=== PATIENT | female | born 1930 | race Caucasian/White ===

== ENCOUNTER → 2017-01-10 | Outpatient (CLI) | payer BC, OTHER ==
[~2017-01-10] MED LIST: ASPI81TA28 PO; CHOL1000 PO; CLON0.1T12 PO; CYAN100020 PO; DLC5 PO; DLCS PR; EXL15 PO; LEVO50TA6 PO; LISI-461 PO; LSN5 PO; MECL1TAB40 PO; MELO7.5T5 PO; METF500T5 PO; MRLP17 PO; MULT-506 PO; MULT-589 PO; NAPR1TAB9 PO; NMN10 PO; NUTR-7 PO; PRAV10TA39 PO; PRLSR20 PO; XNX25 PO
[2017-01-10 17:00] LABS: MANUAL MICROSCOPIC REQUIRED? NO; REVIEW REQ? NO; URINE APPEARANCE CLEAR (CLEAR); URINE BILIRUBIN NEG (NEG); URINE COLOR YELLOW; URINE EPITHELIAL CELL AUTO >30 /lpf (0-5); URINE NITRITE NEG (NEG); URINE PH 5.5 (4.5-7.5); URINE SPECIFIC GRAVITY 1.012 (1.000-1.030); UROBILINOGEN NEG (NEG)
== END | disposition home or self-care (01) ==
LOC: EDBD → C.LABBC 16:26
PROVIDERS: ATTEND Internal Medicine
DX: R39.9 Unspecified symptoms and signs involving the genitourinary system (principal)

== ENCOUNTER → 2017-02-06 | Outpatient (CLI) | payer BC ==
--- NOTE | 2017-02-06 13:52 | DIAGNOSTIC IMAGING REPORT ---
CT SCAN OF THE BRAIN WITHOUT IV CONTRAST CLINICAL HISTORY: Right facial asymmetry. Difficult with walking and speech. COMPARISON STUDY: CT of the brain dated 05/18/2013. TECHNIQUE: Unenhanced axial CT scan of the brain is performed from the vertex to the skull base. CT DOSE: 537.48 mGy.cm FINDINGS: Brain parenchyma: There are age-related involutional changes noting advanced confluent subcortical and periventricular microangiopathic change. There is no hemorrhage, mass effect, or evidence of acute territorial ischemia by CT criteria. A small chronic lacunar infarct is identified in the anterior limb of the right internal capsule. Cooper-white matter is preserved. No extra-axial fluid collection is seen. Ventricles, sulci, cisterns: Prominent secondary to involutional change. Intracranial vasculature: There is atherosclerotic calcification of the cavernous carotid and vertebral arteries. Calvarium: Unremarkable. Sinuses and mastoids: The visualized paranasal sinuses are clear. The mastoid air cells are well pneumatized. Orbits: The bony orbits are grossly intact. IMPRESSION: Senescent changes as above with no hemorrhage, mass effect, or evidence of acute territorial ischemia by CT criteria. Electronically signed by: Daniel Sandoval M.D. 02/06/2017 1:50 PM Dictated Date/Time: 02/06/2017 1:47 PM
--- NOTE | 2017-02-06 14:33 | DIAGNOSTIC IMAGING REPORT ---
ULTRASOUND OF THE CAROTID ARTERIES CLINICAL HISTORY: Aphasia. COMPARISON STUDY: No priors. TECHNIQUE: Real-time, grayscale, and color Doppler sonography of the carotid arteries is performed. Images are reviewed in the transverse and longitudinal planes. FINDINGS: Blood pressures could not be obtained due to patient condition. The carotid arteries are patent bilaterally and demonstrate antegrade flow. There is mild to moderate echogenic shadowing atherosclerotic plaque seen bilaterally. Normal doppler arterial waveforms are seen throughout. Velocity measurements are listed below. Common carotid peak systolic velocity (cm/sec): RIGHT: 44 LEFT: 50 ICA proximal peak systolic velocity (cm/sec): RIGHT: 48 LEFT: 56 ICA mid peak systolic velocity (cm/sec): RIGHT: 58 LEFT: 77 ICA distal peak systolic velocity (cm/sec): RIGHT: 58 LEFT: 78 ICA/CC peak systolic ratio: RIGHT: 1.3 LEFT: 1.6 Antegrade flow was shown in the vertebral arteries. The external carotid arteries are patent. Elevated velocities within the right external carotid artery suggests some degree of stenosis. IMPRESSION: 1. Atherosclerotic plaque with no sonographic evidence of hemodynamically significant stenosis in the right or left carotid arterial system. 2. Antegrade flow is shown in the vertebral arteries. Electronically signed by: Daniel Sandoval M.D. 02/06/2017 2:31 PM Dictated Date/Time: 02/06/2017 2:29 PM
== END | disposition home or self-care (01) ==
LOC: EDBD → C.CTS 13:29 → EEVIPCON 13:29
PROVIDERS: ATTEND Psychiatry & Neurology Neurology
DX: R47.01 Aphasia (principal)

== ENCOUNTER → 2017-06-12 | Outpatient (CLI) | payer BC ==
[2017-06-12 18:12] LABS: URINE APPEARANCE CLOUDY (CLEAR); URINE BILIRUBIN NEG (NEG); URINE COLOR DK YELLOW; URINE EPITHELIAL CELL AUTO >30 /lpf (0-5); URINE NITRITE NEG (NEG); URINE PH 5.5 (4.5-7.5); URINE SPECIFIC GRAVITY 1.023 (1.000-1.030); UROBILINOGEN NEG (NEG)
[2017-06-12 18:13] LABS: MANUAL MICROSCOPIC REQUIRED? NO; REVIEW REQ? YES
[2017-06-12 18:35] LABS: ALT/SGPT 18 U/L (12-78); BLOOD UREA NITROGEN 15 mg/dl (7-18); BUN/CREATININE RATIO 15.1 (10-20); CALCIUM 9.7 mg/dl (8.5-10.1); CARBON DIOXIDE 30 mmol/L (21-32); CHLORIDE 96 mmol/L (98-107); GLUCOSE 141 mg/dl (70-99); POTASSIUM 3.4 mmol/L (3.5-5.1); SODIUM 134 mmol/L (136-145)
[2017-06-12 18:45] LABS: ALB/GLOB RATIO 0.9 (0.9-2); ALKALINE PHOSPHATASE 107 U/L (45-117); AST/SGOT 15 U/L (15-37)
[2017-06-13 07:06] LABS: ESTIMATED AVERAGE GLUCOSE 163 mg/dl; HA1C FLAG Normal (Normal)
--- NOTE | 2017-06-27 14:07 | CODING QUERY MEDICAL NECESSITY ---
SUPPORTING DIAGNOSIS NEEDED A supporting diagnosis is required for the test/procedure performed on this patient in order for us to be reimbursed by the patient's insurance. Please provide a supporting diagnosis for the following test/procedure listed below next to the test name along with your signature. *If there is no additional diagnosis for this patient that would support the following test/procedure please document that below next to the test/procedure. Test(s)/Procedure(s) that require a supporting diagnosis: * VITAMIN D, 25-HYDROXY DIAGNOSIS: Provider Signature: Date: Thank you Kori Sifuentes [employer] Information Management Once completed, please kindly fax back to [phone] For questions please call [phone]
== END | disposition home or self-care (01) ==
LOC: C.LAB 17:07
PROVIDERS: ATTEND Physician Assistant Medical
DX: E11.9 Type 2 diabetes mellitus without complications (principal); R42 Dizziness and giddiness; R39.9 Unspecified symptoms and signs involving the genitourinary system; R41.0 Disorientation, unspecified; R29.898 Other symptoms and signs involving the musculoskeletal system; E03.9 Hypothyroidism, unspecified

== ENCOUNTER 2017-07-27 08:17 | Inpatient (IN) | payer BC, OTHER ==
[~2017-07-27] VITALS: Ht 160 cm; Wt 90.3 kg
[~2017-07-27 08:17] MED LIST changes: -ASPI81TA28 PO; -CHOL1000 PO; -CLON0.1T12 PO; -CYAN100020 PO; -DLC5 PO; -DLCS PR; -EXL15 PO; -LEVO50TA6 PO; -LISI-461 PO; -LSN5 PO; -MECL1TAB40 PO; -METF500T5 PO; -MRLP17 PO; -MULT-589 PO; -NMN10 PO; -NUTR-7 PO; -PRLSR20 PO; -XNX25 PO
[2017-07-27] MEDS ORDERED: ONDANSETRON INJ 2 MG/ML 2 ML VIAL IV STA (08:22)
[2017-07-27] MEDS ORDERED: NiCARDipine IV 25 MG in SODIUM CHLORIDE 0.9% 250ML 240 ML IV STA (08:22)
[2017-07-27] MEDS ORDERED: LABETALOL HCL IV 5 MG/ML 20ML IV STA (08:22)
--- NOTE | 2017-07-27 08:35 | EMERGENCY ROOM VISIT NOTE ---
History Report prepared by Artemioibangela: Sole Calero Under the Supervision of: Dr. Emanuel Lerner M.D. First contact with patient: 08:20 Chief Complaint: FALL Stated Complaint: FALL History of Present Illness The patient is an 88 year old female who presents to the Emergency Room with complaints of a fall that occurred prior to arrival. She was brought to the ED via BLS from [facility] where she resides. EMS reports the patient experienced a mechanical fall this morning. She sustained a large hematoma with a laceration to the right side of her forehead. She also complains of back pain. Per EMS, she began vomiting immediately prior to arrival. She has experienced emesis x 1 here in the ED. Her daughter reports she lived with her and her up until approximately 2 months ago. She states she was told by Nursing staff that as the patient was getting dressed with assistance this morning, her theology professor turned around to get something, and the patient lost her balance and fell onto the floor. Source of History: family (daughter), EMS Onset: earlier this morning Position: other (global) Quality: other (fall) Timing: resolved Associated Symptoms: + nausea, + vomiting, + back pain Review of Systems See HPI for pertinent positives & negatives. A total of 10 systems reviewed and were otherwise negative. Past Medical & Surgical Medical Problems: (1) Carcinoma of colon (2) Partial colectomy Social History Alcohol Use: none Drug Use: none Marital Status: Housing Status: alf Occupation Status: retired Current/Historical Medications Scheduled Aspirin (Aspirin Ec), 81 MG PO DAILY Cholecalciferol (Vitamin D3), 1,000 INTER.UNIT PO DAILY Clonidine Hcl (Catapres), 0.1 MG PO BID Cyanocobalamin (Vitamin B12), 1,000 MCG PO DAILY Levothyroxine Sodium (Levothyroxine Sodium), 50 MCG PO DAILY Lisinopril (Lisinopril), 5 MG PO DAILY Memantine (Namenda), 10 MG PO BID Metformin Hcl Er (Glucophage Er), 500 MG PO DAILY Multivitamins (Daily Saroj), 1 TAB PO DAILY Pravastatin Sodium (Pravastatin Sodium), 10 MG PO DAILY Rivastigmine Tartrate (Rivastigmine Tartrate), 3 MG PO BID Scheduled PRN Alprazolam (Alprazolam), 0.125 MG PO BID PRN for Anxiety Meclizine HCl (Meclizine HCl), 25 MG PO TID PRN for Dizziness or Vertigo Omeprazole (Prilosec), 20 MG PO DAILY PRN for PRN Allergies Coded Allergies: Penicillins (Verified Allergy, Intermediate, RASH, 02/15/13) Donepezil (Unverified Allergy, Unknown, UNKNOWN, 07/27/17) Sulfa Antibiotics (Unverified Allergy, Unknown, UNKNOWN, 07/27/17) Physical Exam Vital Signs Date Time Temp Pulse Resp B/P (MAP) Pulse Ox O2 Delivery O2 Flow Rate FiO2 07/27/17 10:30 85 20 135/81 95 Room Air 07/27/17 10:20 83 18 157/76 95 Room Air 07/27/17 10:20 95 Room Air 07/27/17 10:10 82 20 159/78 94 Room Air 07/27/17 10:00 81 18 146/79 95 Room Air 07/27/17 09:50 84 18 151/75 95 Room Air 07/27/17 09:40 79 18 155/73 96 Room Air 07/27/17 09:30 80 18 176/91 96 Room Air 07/27/17 09:25 82 18 169/93 97 Room Air 07/27/17 09:17 75 20 192/92 95 Room Air 07/27/17 09:10 75 20 200/95 96 Room Air 07/27/17 09:00 195/128 07/27/17 08:50 202/101 07/27/17 08:45 74 18 202/92 94 Room Air 07/27/17 08:43 81 18 180/103 94 Room Air 07/27/17 08:35 95 Room Air 07/27/17 08:25 37.0 77 18 241/115 96 Room Air 07/27/17 08:25 76 Physical Exam GENERAL: Patient is a healthy-appearing well-nourished 88 year old female HEAD: Normocephalic, large hematoma to right side of head, laceration present EYES: Ocular movements intact pupils equal and react to light OROPHARYNX mucous membranes are moist no exudates present no erythema or edema present NECK: Supple no nuchal rigidity CHEST: Good equal expansion LUNGS: Clear and equal to auscultation CARDIAC: Normal S1 and S2 ABDOMEN: Soft nontender no guarding BACK: No CVA tenderness EXTREMITIES: No pain upon palpation normal muscle strength in all groups no clubbing cyanosis or edema NEURO: Patient is following commands is answering questions appropriately. Alert and oriented x3 Cranial Nerves 2-12 grossly intact Medical Decision & Procedures ER Provider Diagnostic Interpretation: Radiology results as stated below per my review and radiologist interpretation: CERVICAL SPINE W/O CLINICAL HISTORY: 88 years-old Female with Pt fall. Acute neck injury status post fall. COMPARISON: CT head of same day, CT cervical spine 05/17/2013. TECHNIQUE: Multiple axial CT images of the cervical spine were obtained without contrast. A dose lowering technique was utilized adhering to the principles of ALARA. FINDINGS: No acute cervical spine fracture or dislocation identified. There is unchanged 2 mm anterolisthesis of C4 on C5, likely secondary to severe facet arthropathy at this interspace. Multilevel facet arthropathy is noted which is moderate to severe throughout. Multilevel intervertebral disc space narrowing and endplate spurring is also noted. These changes result in moderate right-sided foraminal narrowing at C3-C4, moderate foraminal narrowing on the left at C4-C5 moderate left and severe right foraminal narrowing at C5-C6. Moderate bilateral C6-C7 foraminal stenosis. There is moderate intervertebral disc space narrowing at C3-C4 with mild/moderate intervertebral disc space narrowing seen at several levels. There is mild central canal narrowing at C5-C6. Lung apices are clear. There is atherosclerosis of the aorta and carotid bulbs. IMPRESSION: 1. No acute cervical spine fracture or subluxation. 2. Unchanged 2 mm anterolisthesis of C4 on C5, likely secondary to underlying severe facet arthropathy. 3. Multilevel advanced facet arthropathy and uncovertebral spurring is noted in addition to intervertebral disc space narrowing as above resulting in varying degrees of central canal and foraminal narrowing. No high-grade central canal stenosis identified. The above report was generated using voice recognition software. It may contain grammatical, syntax or spelling errors. Electronically signed by: Juan Crowder M.D. 07/27/2017 8:54 AM HEAD WITHOUT CONTRAST (CT) CLINICAL HISTORY: 88 years-old Female with Pt AMS. Acute altered mental status with fall. Right frontal scalp laceration and hematoma. TECHNIQUE: Multiple axial CT images of the head were obtained without contrast. A dose lowering technique was utilized adhering to the principles of ALARA. CT DOSE: 1093.00 mGy.cm COMPARISON: CT head 02/06/2017. FINDINGS: No acute intracranial hemorrhage, midline shift, mass, large territorial ischemia or abnormal extra-axial collection. There is moderate cerebral and cerebellar atrophy with ex vacuo ventriculomegaly. Advanced chronic microvascular ischemic changes are present. The calvarium is intact. The paranasal sinuses, mastoid air cells, and middle ear cavities are clear. There is a large right frontal scalp hematoma, 5.3 x 1.6 cm with adjacent skin irregularity suggesting laceration. No opaque foreign body. IMPRESSION: 1. Large right frontal scalp hematoma measuring up to 5.3 cm and laceration without acute intracranial abnormality or calvarial fracture. No intracranial hemorrhage. 2. Stable age-related changes as above. The above report was generated using voice recognition software. It may contain grammatical, syntax or spelling errors. Electronically signed by: Juan Crowder M.D. 07/27/2017 8:45 AM CHEST ONE VIEW PORTABLE HISTORY: 88 years-old Female Pt c/o AMS acute altered mental status with recent fall. COMPARISON: Chest radiograph 02/15/2013 TECHNIQUE: Portable upright AP view of the chest FINDINGS: Cardiac silhouette is again mildly enlarged. There is atherosclerosis and tortuosity of the aorta. There is no pneumothorax or large pleural effusion. Subsegmental linear left lung base opacity suggests atelectasis. There is sigmoidal scoliosis of the thoracolumbar spine. The bones appear grossly intact. IMPRESSION: Minimal left lung base subsegmental atelectasis/scarring without acute cardiopulmonary process. The above report was generated using voice recognition software. It may contain grammatical, syntax or spelling errors. Electronically signed by: Juan Crowder M.D. 07/27/2017 9:41 AM PELVIS 1 OR 2 VIEW ROUTINE HISTORY: 88 years-old Female Pt c/o AMS, fall acute altered mental status with recent fall. COMPARISON: Acute abdominal series radiographs 10/13/2012 TECHNIQUE: Single frontal view of the pelvis FINDINGS: Surgical coils from hernia repair project over the right lower quadrant. Vascular calcifications are noted. Moderate osteoarthritis of the bilateral hips. Advanced degenerative changes involve the lower lumbar spine, only partially imaged. There is no acute fracture or dislocation identified. IMPRESSION: 1. No acute fracture or dislocation. 2. Moderate osteoarthritis of the bilateral hips with partially imaged advanced degenerative changes of the lower lumbar spine. The above report was generated using voice recognition software. It may contain grammatical, syntax or spelling errors. Electronically signed by: Juan Crowder M.D. 07/27/2017 9:43 AM Laboratory Results 07/27/17 08:35 Red Blood Count 4.66, Mean Corpuscular Volume 90.3, Mean Corpuscular Hemoglobin 30.9, Mean Corpuscular Hemoglobin Concent 34.2, Mean Platelet Volume 10.8, Neutrophils (%) (Auto) 72.2, Lymphocytes (%) (Auto) 17.8, Monocytes (%) (Auto) 7.8, Eosinophils (%) (Auto) 1.6, Basophils (%) (Auto) 0.3, Neutrophils # (Auto) 8.15, Lymphocytes # (Auto) 2.01, Monocytes # (Auto) 0.88, Eosinophils # (Auto) 0.18, Basophils # (Auto) 0.03 07/27/17 08:35 Test 07/27/17 08:35 07/27/17 08:44 07/27/17 09:00 White Blood Count 11.28 K/uL (4.8-10.8) Red Blood Count 4.66 M/uL (4.2-5.4) Hemoglobin 14.4 g/dL (12.0-16.0) Hematocrit 42.1 % (37-47) Mean Corpuscular Volume 90.3 fL (80-100) Mean Corpuscular Hemoglobin 30.9 pg (25-34) Mean Corpuscular Hemoglobin Concent 34.2 g/dl (32-36) Platelet Count 285 K/uL (130-400) Mean Platelet Volume 10.8 fL (7.4-10.4) Neutrophils (%) (Auto) 72.2 % Lymphocytes (%) (Auto) 17.8 % Monocytes (%) (Auto) 7.8 % Eosinophils (%) (Auto) 1.6 % Basophils (%) (Auto) 0.3 % Neutrophils # (Auto) 8.15 K/uL (1.4-6.5) Lymphocytes # (Auto) 2.01 K/uL (1.2-3.4) Monocytes # (Auto) 0.88 K/uL (0.11-0.59) Eosinophils # (Auto) 0.18 K/uL (0-0.5) Basophils # (Auto) 0.03 K/uL (0-0.2) RDW Standard Deviation 42.5 fL (36.4-46.3) RDW Coefficient of Variation 13.0 % (11.5-14.5) Immature Granulocyte % (Auto) 0.3 % Immature Granulocyte # (Auto) 0.03 K/uL (0.00-0.02) Prothrombin Time 10.0 SECONDS (9.0-12.0) Prothromb Time International Ratio 0.9 (0.9-1.1) Activated Partial Thromboplast Time 24.3 SECONDS (21.0-31.0) Partial Thromboplastin Ratio 0.9 Anion Gap 9.0 mmol/L (3-11) Estimated GFR () 76.8 Estimated GFR (Non- 66.3 BUN/Creatinine Ratio 15.7 (10-20) Calcium Level 9.4 mg/dl (8.5-10.1) Total Creatine Kinase 79 U/L (26-192) Creatine Kinase MB 1.6 ng/ml (0.5-3.6) Creatine Kinase MB Ratio 2.0 (0-3.0) Troponin I < 0.015 ng/ml (0-0.045) Bedside Prothrombin Time INR 0.9 (0.9-1.1) Urine Color YELLOW Urine Appearance CLEAR (CLEAR) Urine pH 8.0 (4.5-7.5) Urine Specific [place] 1.015 (1.000-1.030) Urine Protein NEG (NEG) Urine Glucose (UA) NEG (NEG) Urine Ketones NEG (NEG) Urine Occult Blood NEG (NEG) Urine Nitrite NEG (NEG) Urine Bilirubin NEG (NEG) Urine Urobilinogen NEG (NEG) Urine Leukocyte Esterase NEG (NEG) Labs reviewed by ED physician. Medications Administered Medications (Trade) Dose Ordered Sig/Domenico Route Start Time Stop Time Status Last Admin Dose Admin Labetalol HCl (Normodyne IV) 10 mg NOW STAT IV 07/27/17 08:22 07/27/17 08:25 DC 07/27/17 08:42 10 MG Nicardipine HCl 25 mg/Sodium Chloride 250 ml @ 0 mls/hr Q0M STAT IV 07/27/17 08:22 07/27/17 08:25 DC 07/27/17 09:13 50 MLS/HR Ondansetron HCl (Zofran Inj) 4 mg NOW STAT IV 07/27/17 08:22 07/27/17 08:25 DC 07/27/17 08:40 4 MG Lisinopril (Zestril Tab) 5 mg NOW ONCE PO 07/27/17 10:30 07/27/17 10:31 DC 07/27/17 10:38 5 MG Procedure Location: Right Forehead Total length: 2.6 cm Complexity: Simple Verbal consent was obtained after the risks and benefits were explained, including but not limited to bleeding, scarring, infection, pain, and bone/joint /nerve damage. At this time, the risks of the procedure are less than the risks of NOT performing the procedure. A time out was taken and the correct patient and site identified. The skin was prepped with betadine. The target area was anesthetized with 4 ml of 1% lidocaine without epinephrine. Copious irrigation was performed using NSS. The skin was re-prepped with betadine and a sterile field set. The wound was explored for foreign bodies and none found. Examination revealed no injury to deep structures such as tendons, bone, or significant blood vessels. Debridement was not performed. The wound edges were approximated using 3, 5-0 simple interrupted nylon sutures. Hemostasis and excellent approximation was achieved. Antibacterial ointment and a sterile dressing applied. Detailed wound care instructions and signs and symptoms of infection reviewed with the patient. No complications and the patient tolerated the procedure well. ECG Indication: vomiting Rate (beats per minute): 76 Rhythm: normal sinus (normal sinus rhythm) Findings: no acute ischemic change, no ectopy, other (Prolonged QT) ED Course 0822: Zofran 4 mg IV, Nicardipine HCl 25 mg/NSS 250 ml @ 0 mls/hr IV, Labetalol HCl 10 mg IV. 0830: Past medical records reviewed. The patient was evaluated in room A2. A complete history and physical examination was performed. 0839: Lidocaine HCl 20 ml INFIL. 0939: I discussed the patients case with Dr. Cristina, [facility] Hospitalist. The patient will be further evaluated. 0945: I reevaluated the patient. She is resting comfortably. I discussed her results and my recommendation she remain in the hospital for further evaluation and management. Her family verbalized complete understanding and agreement. Medical Decision Prior records/ancillary studies reviewed. Triage Nursing notes reviewed. The patient's history was concerning for traumatic injury Differential diagnosis: Etiologies such as fracture, dislocation, intra-abdominal, pneumothorax, intrathoracic , intracranial, neurologic, as well as other traumatic pathologies were entertained. This is an 88-year-old female who presents emergency department after a fall at her alf. The patient has a large contusion with laceration and is actively vomiting. Her blood pressure is extremely high. Based on these findings the patient was sent immediately to CAT scan of the head. This does not show any acute intracranial process. The patient was then given Zofran as well as labetalol to bring her blood pressure down. She was placed on a nicardipine drip. The laceration was repaired as above. Repeat examination revealed much improvement the patient's symptoms. Based on the active vomiting as well as the patient's hypertension I did discuss the case with the hospitalist service who agreed to admit the patient. Patient family were in agreement with the treatment plan. Medication Reconcilliation Current Medication List: was personally reviewed by me Blood Pressure Screening Patient's blood pressure: Elevated blood pressure The patients elevated blood pressure will be further addressed by the hospital medicine team Consults Time Called: [phone] Consulting Physician: Dr. Cristina [facility] Hospitalist Returned Call: [phone] I discussed the patients case with Dr. Cristina [facility] Hospitalist. The patient will be further evaluated. Impression Primary Impression: Hypertensive urgency Additional Impressions: Fall Head injury Critical Care I have personally spent greater than 30 minutes of critical care time in the direct management of this patient. This includes bedside care, interpretation of diagnostic studies, and testing, discussion with consultants, patient, and family members, and other required patient management activities. This 30 minutes is in excess of all separately billable procedures. Scribe Attestation The scribe's documentation has been prepared under my direction and personally reviewed by me in its entirety. I confirm that the note above accurately reflects all work, treatment, procedures, and medical decision making performed by me. Departure Information Dispostion Being Evaluated By Hospitalist Referrals Dimitry Sandhu M.D. (PCP) Patient Instructions My [facility] Problem Qualifiers Additional Impressions: Fall Encounter type: initial encounter Qualified Codes: W19.XXXA - Unspecified fall, initial encounter Head injury Encounter type: initial encounter Qualified Codes: S09.90XA - Unspecified injury of head, initial encounter
[2017-07-27] MEDS ORDERED: XYLOCAINE 1%/SOD BICARB 20 ML VIAL INFIL STA (08:39)
--- NOTE | 2017-07-27 08:46 | DIAGNOSTIC IMAGING REPORT ---
HEAD WITHOUT CONTRAST (CT) CLINICAL HISTORY: 88 years-old Female with Pt AMS. Acute altered mental status with fall. Right frontal scalp laceration and hematoma. TECHNIQUE: Multiple axial CT images of the head were obtained without contrast. A dose lowering technique was utilized adhering to the principles of ALARA. CT DOSE: 1093.00 mGy.cm COMPARISON: CT head 02/06/2017. FINDINGS: No acute intracranial hemorrhage, midline shift, mass, large territorial ischemia or abnormal extra-axial collection. There is moderate cerebral and cerebellar atrophy with ex vacuo ventriculomegaly. Advanced chronic microvascular ischemic changes are present. The calvarium is intact. The paranasal sinuses, mastoid air cells, and middle ear cavities are clear. There is a large right frontal scalp hematoma, 5.3 x 1.6 cm with adjacent skin irregularity suggesting laceration. No opaque foreign body. IMPRESSION: 1. Large right frontal scalp hematoma measuring up to 5.3 cm and laceration without acute intracranial abnormality or calvarial fracture. No intracranial hemorrhage. 2. Stable age-related changes as above. The above report was generated using voice recognition software. It may contain grammatical, syntax or spelling errors. Electronically signed by: Juan Crowder M.D. 07/27/2017 8:45 AM Dictated Date/Time: 07/27/2017 8:41 AM
[2017-07-27] MEDS ORDERED: MULT-589 PO (08:51)
[2017-07-27] MEDS ORDERED: LEVO50TA6 PO (08:51)
[2017-07-27] MEDS ORDERED: CLON0.1T12 PO (08:51)
[2017-07-27] MEDS ORDERED: ASPI81TA28 PO (08:51)
[2017-07-27] MEDS ORDERED: XNX25 PO (08:52)
[2017-07-27] MEDS ORDERED: CHOL1000 PO (08:52)
[2017-07-27] MEDS ORDERED: NMN10 PO (08:52)
[2017-07-27] MEDS ORDERED: PRLSR20 PO (08:52)
[2017-07-27] MEDS ORDERED: CYAN100020 PO (08:52)
[2017-07-27] MEDS ORDERED: LSN5 PO (08:52)
[2017-07-27] MEDS ORDERED: MECL1TAB40 PO (08:52)
[2017-07-27] MEDS ORDERED: EXL15 PO (08:52)
[2017-07-27] MEDS ORDERED: METF500T5 PO (08:52)
--- NOTE | 2017-07-27 08:55 | DIAGNOSTIC IMAGING REPORT ---
CERVICAL SPINE W/O CLINICAL HISTORY: 88 years-old Female with Pt fall. Acute neck injury status post fall. COMPARISON: CT head of same day, CT cervical spine 05/17/2013. TECHNIQUE: Multiple axial CT images of the cervical spine were obtained without contrast. A dose lowering technique was utilized adhering to the principles of ALARA. FINDINGS: No acute cervical spine fracture or dislocation identified. There is unchanged 2 mm anterolisthesis of C4 on C5, likely secondary to severe facet arthropathy at this interspace. Multilevel facet arthropathy is noted which is moderate to severe throughout. Multilevel intervertebral disc space narrowing and endplate spurring is also noted. These changes result in moderate right-sided foraminal narrowing at C3-C4, moderate foraminal narrowing on the left at C4-C5 moderate left and severe right foraminal narrowing at C5-C6. Moderate bilateral C6-C7 foraminal stenosis. There is moderate intervertebral disc space narrowing at C3-C4 with mild/moderate intervertebral disc space narrowing seen at several levels. There is mild central canal narrowing at C5-C6. Lung apices are clear. There is atherosclerosis of the aorta and carotid bulbs. IMPRESSION: 1. No acute cervical spine fracture or subluxation. 2. Unchanged 2 mm anterolisthesis of C4 on C5, likely secondary to underlying severe facet arthropathy. 3. Multilevel advanced facet arthropathy and uncovertebral spurring is noted in addition to intervertebral disc space narrowing as above resulting in varying degrees of central canal and foraminal narrowing. No high-grade central canal stenosis identified. The above report was generated using voice recognition software. It may contain grammatical, syntax or spelling errors. Electronically signed by: Juan Crowder M.D. 07/27/2017 8:54 AM Dictated Date/Time: 07/27/2017 8:48 AM
[2017-07-27 09:06] LABS: BASO % 0.3 %; BASO ABS # 0.03 K/uL (0-0.2); COMPLETE YES; EOS % 1.6 %; HEMATOCRIT 42.1 % (37-47); IG% 0.3 %; LYMPH % 17.8 %; LYMPH ABS # 2.01 K/uL (1.2-3.4); MEAN CELL VOLUME 90.3 fL (80-100); MEAN CORPUSCULAR HEMOGLOBIN 30.9 pg (25-34); MEAN CORPUSCULAR HGB CONC 34.2 g/dl (32-36); MEAN PLATELET VOLUME 10.8 fL (7.4-10.4); MONO % 7.8 %; NEUT % 72.2 %; PLATELET COUNT 285 K/uL (130-400); RED BLOOD COUNT 4.66 M/uL (4.2-5.4); WHITE BLOOD COUNT 11.28 K/uL (4.8-10.8)
[2017-07-27 09:15] LABS: INR 0.9 (0.9-1.1); PARTIAL THROMBOPLASTIN RATIO 0.9
[2017-07-27 09:20] LABS: BLOOD UREA NITROGEN 13 mg/dl (7-18); BUN/CREATININE RATIO 15.7 (10-20); CALCIUM 9.4 mg/dl (8.5-10.1); CARBON DIOXIDE 27 mmol/L (21-32); CHLORIDE 104 mmol/L (98-107); GLUCOSE 168 mg/dl (70-99); POTASSIUM 4.1 mmol/L (3.5-5.1); SODIUM 140 mmol/L (136-145)
[2017-07-27 09:24] LABS: URINE APPEARANCE CLEAR (CLEAR); URINE BILIRUBIN NEG (NEG); URINE COLOR YELLOW; URINE NITRITE NEG (NEG); URINE SPECIFIC GRAVITY 1.015 (1.000-1.030); UROBILINOGEN NEG (NEG); ZZURINE CULT IF INDIC CATH NO
--- NOTE | 2017-07-27 09:42 | DIAGNOSTIC IMAGING REPORT ---
CHEST ONE VIEW PORTABLE HISTORY: 88 years-old Female Pt c/o AMS acute altered mental status with recent fall. COMPARISON: Chest radiograph 02/15/2013 TECHNIQUE: Portable upright AP view of the chest FINDINGS: Cardiac silhouette is again mildly enlarged. There is atherosclerosis and tortuosity of the aorta. There is no pneumothorax or large pleural effusion. Subsegmental linear left lung base opacity suggests atelectasis. There is sigmoidal scoliosis of the thoracolumbar spine. The bones appear grossly intact. IMPRESSION: Minimal left lung base subsegmental atelectasis/scarring without acute cardiopulmonary process. The above report was generated using voice recognition software. It may contain grammatical, syntax or spelling errors. Electronically signed by: Juan Crowder M.D. 07/27/2017 9:41 AM Dictated Date/Time: 07/27/2017 9:39 AM
--- NOTE | 2017-07-27 09:44 | DIAGNOSTIC IMAGING REPORT ---
PELVIS 1 OR 2 VIEW ROUTINE HISTORY: 88 years-old Female Pt c/o AMS, fall acute altered mental status with recent fall. COMPARISON: Acute abdominal series radiographs 10/13/2012 TECHNIQUE: Single frontal view of the pelvis FINDINGS: Surgical coils from hernia repair project over the right lower quadrant. Vascular calcifications are noted. Moderate osteoarthritis of the bilateral hips. Advanced degenerative changes involve the lower lumbar spine, only partially imaged. There is no acute fracture or dislocation identified. IMPRESSION: 1. No acute fracture or dislocation. 2. Moderate osteoarthritis of the bilateral hips with partially imaged advanced degenerative changes of the lower lumbar spine. The above report was generated using voice recognition software. It may contain grammatical, syntax or spelling errors. Electronically signed by: Juan Crowder M.D. 07/27/2017 9:43 AM Dictated Date/Time: 07/27/2017 9:41 AM
[2017-07-27 09:47] LABS: MANUAL MICROSCOPIC REQUIRED? NO; REVIEW REQ? NO
[2017-07-27 10:20] VITALS: O2SAT 95; Ht 160 cm; Wt 90.3 kg
[2017-07-27] MEDS ORDERED: LISINOPRIL 5 MG TAB PO ONE (10:30)
[2017-07-27] MEDS ORDERED: NiCARDipine IV 25 MG in SODIUM CHLORIDE 0.9% 250ML 240 ML IV PRN (10:38)
[2017-07-27] MEDS ORDERED: ACETAMINOPHEN 325 MG TAB PO PRN (10:45)
[2017-07-27] MEDS ORDERED: MAGNESIUM HYDROXIDE SUSP 30 ML UDC PO PRN (10:45)
[2017-07-27] MEDS ORDERED: ALPRAZOLAM 0.25 MG TAB PO PRN (10:45)
[2017-07-27] MEDS ORDERED: ONDANSETRON INJ 2 MG/ML 2 ML VIAL IV PRN (10:45)
[2017-07-27] MEDS ORDERED: ALUMINUM/MAGNESIUM/SIMETH (MAALOX MAX) 30 ML UDC PO PRN (10:45)
[2017-07-27] MEDS: INSULIN ASPART 100 UNITS/ML 3 ML PEN SC SCH ×3 (11:00→21:00)
[2017-07-27] MEDS ORDERED: DEXTROSE 50% 50 ML SYR IV PRN (11:00)
[2017-07-27] MEDS ORDERED: GLUCOSE 40% GEL 15 GM TUBE PO PRN (11:00)
[2017-07-27] MEDS ORDERED: GLUCOSE 10 TABS/TUBE PO PRN (11:00)
[2017-07-27] MEDS ORDERED: GLUCAGON FOR INJ 1 MG VIAL SQ PRN (11:00)
--- NOTE | 2017-07-27 11:04 | History and Physical ---
History & Physical Date & Time of Service: Jul 27, 2017 at 10:46 Chief Complaint: FALL Primary Care Physician: Dimitry Sandhu M.D. History of Present Illness 88yo female, resident of [facility], with h/o dementia, T2DM , and HTN - who presented after a fall this am about 0730. Was standing in her room at [facility] while staff were getting her ready for the day when she simply fell and hit her head. There was no loss of consciousness. She struck the front portion of her forehead. The patient denied any dizziness , chest pain, or dyspnea prior to the event. She had several falls a few months ago but none since. She does very little walking, if any, and is essentially wheelchair dependent. Prior to ER arrival she had emesis. Then had emesis again in the ER. SBP upon arrival was >200. Received IV labetalol followed by nicardipine drip. By the time of my assessment her SBP was in the 150s. She had a small head laceration on the right forehead sewn prior to my arrival. Of note - patient did NOT receive her BP meds this AM. Past Medical/Surgical History PMH: 1. h/o colon cancer s/p hemicolectomy 2. HTN 3. T2DM 4. dementia 5. ambulatory dysfunction 6. hyperlipidemia 7. hypothyroidism PSH: 1. cataract extraction 2. hemicolectomy 3. hysterectomy 4. tonsillectomy Family History mother - at early age - some form of cancer father - at old age from natural causes sister - T2DM, HTN Social History Smoking Status: Never Smoker Smokeless Tobacco Use: No Drug Use: none Marital Status: (8 children; originally from [place]; spent most of life in [place], [place]) Housing status: assisted living ([facility]) Occupational Status: retired Immunizations History of Influenza Vaccine: Yes History of Tetanus Vaccine?: No History of Pneumococcal: Yes Pneumococcal Date: Jun 30, 2011 History of Hepatitis B Vaccine: No Multi-Drug Resistant Organisms History of MDRO: No Allergies Coded Allergies: Penicillins (Verified Allergy, Intermediate, RASH, 02/15/13) Donepezil (Unverified Allergy, Unknown, UNKNOWN, 07/27/17) Sulfa Antibiotics (Unverified Allergy, Unknown, UNKNOWN, 07/27/17) Home Medications Scheduled Aspirin (Aspirin Ec), 81 MG PO DAILY Cholecalciferol (Vitamin D3), 1,000 INTER.UNIT PO DAILY Clonidine Hcl (Catapres), 0.1 MG PO BID Cyanocobalamin (Vitamin B12), 1,000 MCG PO DAILY Levothyroxine Sodium (Levothyroxine Sodium), 50 MCG PO DAILY Lisinopril (Lisinopril), 5 MG PO DAILY Memantine (Namenda), 10 MG PO BID Metformin Hcl Er (Glucophage Er), 500 MG PO DAILY Multivitamins (Daily Saroj), 1 TAB PO DAILY Pravastatin Sodium (Pravastatin Sodium), 10 MG PO DAILY Rivastigmine Tartrate (Rivastigmine Tartrate), 3 MG PO BID Scheduled PRN Alprazolam (Alprazolam), 0.125 MG PO BID PRN for Anxiety Meclizine HCl (Meclizine HCl), 25 MG PO TID PRN for Dizziness or Vertigo Omeprazole (Prilosec), 20 MG PO DAILY PRN for PRN Review of Systems Constitutional: No fever, No chills, No fatigue Eyes: No worsening of vision ENT: No nasal symptoms, No trouble swallowing Respiratory: No cough, No dyspnea on exertion, No dyspnea at rest Cardiovascular: No chest pain, No edema Abdomen: + nausea (in ER only), + vomiting (in ER only), No pain, No diarrhea, No GI bleeding Musculoskeletal: + joint pain (hips, knees) Genitourinary - Female: + urinary incontinence, No dysuria Neurologic: + memory loss, + weakness (legs - chronic), No paralysis Psychiatric: No depression symptoms Endocrine: No fatigue Hematologic / Lymphatic: No abnormal bleeding/bruising Integumentary: No rash Physical Exam Vital Signs Date Time Temp Pulse Resp B/P (MAP) Pulse Ox O2 Delivery O2 Flow Rate FiO2 07/27/17 10:30 85 20 135/81 95 Room Air 07/27/17 10:20 83 18 157/76 95 Room Air 07/27/17 10:10 82 20 159/78 94 Room Air 07/27/17 10:00 81 18 146/79 95 Room Air 07/27/17 09:50 84 18 151/75 95 Room Air 07/27/17 09:40 79 18 155/73 96 Room Air 07/27/17 09:30 80 18 176/91 96 Room Air 07/27/17 09:25 82 18 169/93 97 Room Air 07/27/17 09:17 75 20 192/92 95 Room Air 07/27/17 09:10 75 20 200/95 96 Room Air 07/27/17 09:00 195/128 07/27/17 08:50 202/101 07/27/17 08:45 74 18 202/92 94 Room Air 07/27/17 08:43 81 18 180/103 94 Room Air 07/27/17 08:35 95 Room Air 07/27/17 08:25 37.0 77 18 241/115 96 Room Air 07/27/17 08:25 76 General Appearance: WD/WN, no apparent distress, + pertinent finding (somewhat restless, stating she wanted to go home) Head: normocephalic, + evidence of trama (large hematoma over right forehead with ecchymoses extending to the right orbit; there is a small laceration over the right forehead, about 2cm in size, with sutures in place) Eyes: PERRL, sclerae normal, + pertinent finding (lens implant left eye) ENT: pharynx normal, + pertinent finding (cerumen impaction b/l; nose with minor irritation from her fall; no obvious septal hematoma seen) Neck: supple, no adenopathy, thyroid normal, no JVD, no carotid bruits, trachea midline Respiratory/Chest: lungs clear, no respiratory distress, no accessory muscle use Cardiovascular: regular rate, rhythm, no gallop, no murmur, normal peripheral pulses Abdomen/GI: normal bowel sounds, non tender, soft, no organomegaly Back: normal inspection, no CVA tenderness, no muscle spasm, + pertinent finding (no tenderness to palpation over the t-spine or l-spine) Extremities/Musculoskelatal: no pedal edema Neurologic/Psych: alert, + disoriented, + pertinent finding (strength 5/5 x 4 extremities; no facial droop; DTRs 2+ b/l upper & lower extremities; gait not tested) Skin: + pertinent finding (both knees with minor abrasions; large hematoma over right forehead extending onto the right eye periorbitally) Lymphatic: no adenopathy (cervical ) musculo - no pain with palpation of either knee or the pelvis Diagnostics Laboratory Results Results Past 24 Hours Test 07/27/17 08:35 07/27/17 08:44 07/27/17 09:00 Range/Units White Blood Count 11.28 4.8-10.8 K/uL Red Blood Count 4.66 4.2-5.4 M/uL Hemoglobin 14.4 12.0-16.0 g/dL Hematocrit 42.1 37-47 % Mean Corpuscular Volume 90.3 80-100 fL Mean Corpuscular Hemoglobin 30.9 25-34 pg Mean Corpuscular Hemoglobin Concent 34.2 32-36 g/dl Platelet Count 285 130-400 K/uL Mean Platelet Volume 10.8 7.4-10.4 fL Neutrophils (%) (Auto) 72.2 % Lymphocytes (%) (Auto) 17.8 % Monocytes (%) (Auto) 7.8 % Eosinophils (%) (Auto) 1.6 % Basophils (%) (Auto) 0.3 % Neutrophils # (Auto) 8.15 1.4-6.5 K/uL Lymphocytes # (Auto) 2.01 1.2-3.4 K/uL Monocytes # (Auto) 0.88 0.11-0.59 K/uL Eosinophils # (Auto) 0.18 0-0.5 K/uL Basophils # (Auto) 0.03 0-0.2 K/uL RDW Standard Deviation 42.5 36.4-46.3 fL RDW Coefficient of Variation 13.0 11.5-14.5 % Immature Granulocyte % (Auto) 0.3 % Immature Granulocyte # (Auto) 0.03 0.00-0.02 K/uL Prothrombin Time 10.0 9.0-12.0 SECONDS Prothromb Time International Ratio 0.9 0.9-1.1 Activated Partial Thromboplast Time 24.3 21.0-31.0 SECONDS Partial Thromboplastin Ratio 0.9 Sodium Level 140 136-145 mmol/L Potassium Level 4.1 3.5-5.1 mmol/L Chloride Level 104 98-107 mmol/L Carbon Dioxide Level 27 21-32 mmol/L Anion Gap 9.0 3-11 mmol/L Blood Urea Nitrogen 13 7-18 mg/dl Creatinine 0.80 0.60-1.20 mg/dl Estimated GFR () 76.8 Estimated GFR (Non- 66.3 BUN/Creatinine Ratio 15.7 10-20 Random Glucose 168 70-99 mg/dl Calcium Level 9.4 8.5-10.1 mg/dl Total Creatine Kinase 79 26-192 U/L Creatine Kinase MB 1.6 0.5-3.6 ng/ml Creatine Kinase MB Ratio 2.0 0-3.0 Troponin I < 0.015 0-0.045 ng/ml Bedside Prothrombin Time INR 0.9 0.9-1.1 Bedside Glucose 157 70-90 mg/dl Urine Color YELLOW Urine Appearance CLEAR CLEAR Urine pH 8.0 4.5-7.5 Urine Specific [place] 1.015 1.000-1.030 Urine Protein NEG NEG Urine Glucose (UA) NEG NEG Urine Ketones NEG NEG Urine Occult Blood NEG NEG Urine Nitrite NEG NEG Urine Bilirubin NEG NEG Urine Urobilinogen NEG NEG Urine Leukocyte Esterase NEG NEG Diagnostic Radiology head CT - neg for ICH or stroke cervical spine CT - neg for fracture; DJD pelvic x-rays - no fracture, DJD of hips cxr - no infiltrates/pneumonia EKG EKG - my reading - NSR, LVH by voltage criteria, T wave flattening inferior leads as well as lateral leads - in comparison to prior EKG 2013 - flattening of T waves is new Impression Assessment and Plan 88yo female with T2DM, HTN, and dementia presenting with an accidental fall leading to large forehead hematoma and laceration. Also with evidence of hypertensive emergency at presentation. 1. fall with resulting head injury - fortunately no intracranial injury. Ice to hematoma for 1-2 days, then switch to heat. Laceration care with removal of sutures in about 7 days. I don't see any concomitant infectious process or metabolic derangement that could have set her up for this fall. I am uncertain if the BP became severe after the event or preceded the event. 2. hypertensive emergency - already improved with IV labetalol and nicardipine drip started in ER. I suspect we can wean the drip relatively quickly. She did not receive her meds this AM (she would have gotten them at 8am; event was at 0730) and was in considerable pain/distress which may have led to the severely high BP. Allow systolics to be about 170-180 today. Restart lisinopril and then wean nicardipine. Resume clonidine later today. 3. abnormal EKG - the EKG findings may simply be from her LVH and/or the HTN emergency. [id number] will obtain 2 more sets of troponins. no apparent ischemic symptoms at this time although the nausea/emesis could have been suggestive of ischemia. again will run troponins. continue aspirin. 4. T2DM - hold metformin; novolog correction with carb ratio; BSG ac/hs. 5. dementia - anticipate she may have behavioral disturbance while here due to her being out of her typical environment. Monitor for such. 6. hyperlipidemia - statin. 7. nausea/emesis - resolved. See discussion above. 8. hypothyroidism - cont synthroid; most recent TSH was compensated. 9. FEN - T2DM diet; saline lock IV (appears well hydrated); bmp am. 10. PT, OT evals 11. DVT proph - hold chemical means due to large hematoma. SCDs in meantime. Daughter updated at bedside Advanced Directives Existing Advance Directive: Yes Existing Living Will: Yes Existing Power of Rn Clinical Documentation: Yes Resuscitation Status DO NOT RESUSCITATE VTE Prophylaxis VTE Risk Assessment Done? Y/N: Yes Risk Level: Moderate Given or contraindicated: SCD's, Contraindicated Social Service Consult Lives in Personal Care Note total time about 70 minutes Additional Copies To Dimitry Sandhu M.D.
[2017-07-27] MEDS ORDERED: METOPROLOL TARTRATE 1 MG/ML VIAL IV PRN (11:45)
[2017-07-27 13:00] VITALS: BP 168/80; PULSE 86; TEMP 36.9; O2SAT 96
[2017-07-27] MEDS: HydrALAZINE HCL 20 MG/ML VIAL IV. PRN (13:34)
[2017-07-27 15:21] VITALS: BP 130/79; PULSE 112; TEMP 36.7; O2SAT 96
[2017-07-27 17:55] VITALS: BP 162/82; PULSE 92
[2017-07-27 19:26] VITALS: PULSE 114; O2SAT 91
[2017-07-27 20:33] VITALS: BP 172/94
[2017-07-27] MEDS: CLONIDINE HCL 0.1 MG TAB PO SCH (21:26)
[2017-07-27] MEDS: MEMANTINE 10 MG TAB PO SCH (21:26)
[2017-07-28] VITALS (8 sets, daily range): BP systolic 123–190; BP diastolic 71–110; PULSE 74–113; TEMP 35.7–37.1; O2SAT 93–97
[2017-07-28] MEDS: HydrALAZINE HCL 20 MG/ML VIAL IV. PRN (00:01)
[2017-07-28] MEDS: LEVOTHYROXINE 50 MCG TAB PO SCH (06:20)
[2017-07-28 07:58] LABS: BUN/CREATININE RATIO 16.8 (10-20); CALCIUM 9.5 mg/dl (8.5-10.1); CREATININE 0.84 mg/dl (0.60-1.20); POTASSIUM 3.8 mmol/L (3.5-5.1)
[2017-07-28] MEDS: CLONIDINE HCL 0.1 MG TAB PO SCH ×2 (08:21→20:44)
[2017-07-28] MEDS: PRAVASTATIN SOD 10 MG TAB PO SCH (08:22)
[2017-07-28] MEDS: CHOLECALCIFEROL 1000 INTER.UNIT TAB PO SCH (08:22)
[2017-07-28] MEDS: ASPIRIN 81 MG ECTAB PO SCH (08:22)
[2017-07-28] MEDS: MEMANTINE 10 MG TAB PO SCH ×2 (08:22→20:43)
[2017-07-28] MEDS: MULTIVITAMIN TAB PO SCH (08:22)
[2017-07-28] MEDS: LISINOPRIL 10 MG TAB PO SCH (08:23)
--- NOTE | 2017-07-28 08:31 | Hospitalist Progress Note ---
Hospitalist Progress Note Date of Service Jul 28, 2017. (Patricia Gong PA-C) Subjective Pt evaluation today including: conversation w/ patient, physical exam, chart review, lab review, review of studies Pain: None PO Intake: Fair The patient was seen and examined this morning. Pt speaks a mix of [place] and [place] to me. Nursing reports that when using the pharmacy operations coordinator Ipad she is so confused she does not talk to the plant and machinery valuer. She seems to understand basic questions if she has pain, which she answers yes and points to her nose and cheeks. Constitutional: No fever, No fatigue Eyes: No worsening of vision, No diplopia ENT: No trouble swallowing Respiratory: No cough, No shortness of breath Cardiovascular: No chest pain Abdomen: No pain, No nausea Endo: No fatigue Additional Comments: ROS: minimally obtainable due to broken [place] and dementia (Patricia Gong PA-C) Objective Vital Signs Date Time Temp Pulse Resp B/P (MAP) Pulse Ox O2 Delivery O2 Flow Rate FiO2 07/28/17 07:47 37.0 99 18 144/87 (106) 93 Room Air 07/28/17 04:00 Room Air 07/28/17 04:00 35.7 113 18 142/73 (96) 95 07/28/17 00:53 112 147/73 (97) 07/28/17 00:16 36.4 90 18 190/110 (136) 97 07/28/17 00:02 Room Air 07/27/17 20:33 172/94 (120) 07/27/17 20:00 Room Air 07/27/17 19:26 114 20 91 Room Air 07/27/17 17:55 92 162/82 (108) 07/27/17 17:42 130 176/94 07/27/17 16:00 Room Air 07/27/17 15:21 36.7 112 18 130/79 (96) 96 Room Air 07/27/17 13:00 36.9 86 18 168/80 (109) 96 Room Air 07/27/17 12:33 92 18 157/84 93 Room Air 07/27/17 12:21 169/90 07/27/17 12:02 94 18 156/86 95 Room Air 07/27/17 11:40 102 20 120/79 95 Room Air 07/27/17 11:21 90 18 136/87 94 Room Air 07/27/17 11:10 90 18 170/80 95 Room Air 07/27/17 11:00 90 18 174/100 94 Room Air 07/27/17 10:52 169/129 07/27/17 10:30 85 20 135/81 95 Room Air 07/27/17 10:20 83 18 157/76 95 Room Air 07/27/17 10:20 95 Room Air 07/27/17 10:10 82 20 159/78 94 Room Air 07/27/17 10:00 81 18 146/79 95 Room Air 07/27/17 09:50 84 18 151/75 95 Room Air 07/27/17 09:40 79 18 155/73 96 Room Air 07/27/17 09:30 80 18 176/91 96 Room Air 07/27/17 09:25 82 18 169/93 97 Room Air 07/27/17 09:17 75 20 192/92 95 Room Air 07/27/17 09:10 75 20 200/95 96 Room Air 07/27/17 09:00 195/128 07/27/17 08:50 202/101 07/27/17 08:45 74 18 202/92 94 Room Air 07/27/17 08:43 81 18 180/103 94 Room Air 07/27/17 08:35 95 Room Air 07/27/17 08:25 37.0 77 18 241/115 96 Room Air 07/27/17 08:25 76 (Patricia Gong, FRANCOIS) Physical Exam General Appearance: WD/WN, no apparent distress, + obese, + pertinent finding ( + right forehead laceration, +large hematoma, +Ecchymosis surrounding R orbit and extending to the left, dried blood in bilateral nares.) Eyes: PERRL, EOMI ENT: hearing grossly normal, pharynx normal, + pertinent finding (MMM, + dried blood in bilateral nares, ) Neck: supple, no JVD Respiratory/Chest: lungs clear, no respiratory distress, no accessory muscle use Cardiovascular: regular rate, rhythm, no murmur Abdomen: normal bowel sounds, non tender, soft Extremities: non-tender, no pedal edema, no calf tenderness, + pertinent finding (+ small abraisions over bilateral knees) Neurologic/Psychiatric: alert, + pertinent finding (Confused, answers do not make sense even when in mongolian, follows commands for deep breaths.) (Patricia Gong, FRANCOIS) Laboratory Results Last 24 Hours Test 07/27/17 08:35 07/27/17 08:44 07/27/17 09:00 07/27/17 13:09 White Blood Count 11.28 K/uL Red Blood Count 4.66 M/uL Hemoglobin 14.4 g/dL Hematocrit 42.1 % Mean Corpuscular Volume 90.3 fL Mean Corpuscular Hemoglobin 30.9 pg Mean Corpuscular Hemoglobin Concent 34.2 g/dl Platelet Count 285 K/uL Mean Platelet Volume 10.8 fL Neutrophils (%) (Auto) 72.2 % Lymphocytes (%) (Auto) 17.8 % Monocytes (%) (Auto) 7.8 % Eosinophils (%) (Auto) 1.6 % Basophils (%) (Auto) 0.3 % Neutrophils # (Auto) 8.15 K/uL Lymphocytes # (Auto) 2.01 K/uL Monocytes # (Auto) 0.88 K/uL Eosinophils # (Auto) 0.18 K/uL Basophils # (Auto) 0.03 K/uL RDW Standard Deviation 42.5 fL RDW Coefficient of Variation 13.0 % Immature Granulocyte % (Auto) 0.3 % Immature Granulocyte # (Auto) 0.03 K/uL Prothrombin Time 10.0 SECONDS Prothromb Time International Ratio 0.9 Activated Partial Thromboplast Time 24.3 SECONDS Partial Thromboplastin Ratio 0.9 Sodium Level 140 mmol/L Potassium Level 4.1 mmol/L Chloride Level 104 mmol/L Carbon Dioxide Level 27 mmol/L Anion Gap 9.0 mmol/L Blood Urea Nitrogen 13 mg/dl Creatinine 0.80 mg/dl Estimated GFR () 76.8 Estimated GFR (Non- 66.3 BUN/Creatinine Ratio 15.7 Random Glucose 168 mg/dl Calcium Level 9.4 mg/dl Total Creatine Kinase 79 U/L Creatine Kinase MB 1.6 ng/ml Creatine Kinase MB Ratio 2.0 Troponin I < 0.015 ng/ml Bedside Prothrombin Time INR 0.9 Bedside Glucose 157 mg/dl 175 mg/dl Urine Color YELLOW Urine Appearance CLEAR Urine pH 8.0 Urine Specific [place] 1.015 Urine Protein NEG Urine Glucose (UA) NEG Urine Ketones NEG Urine Occult Blood NEG Urine Nitrite NEG Urine Bilirubin NEG Urine Urobilinogen NEG Urine Leukocyte Esterase NEG Test 07/27/17 14:23 07/27/17 16:28 07/27/17 20:20 07/27/17 20:28 Troponin I < 0.015 ng/ml < 0.015 ng/ml Bedside Glucose 165 mg/dl 147 mg/dl Test 07/28/17 06:20 07/28/17 06:40 Bedside Glucose 174 mg/dl Sodium Level 138 mmol/L Potassium Level 3.8 mmol/L Chloride Level 102 mmol/L Carbon Dioxide Level 27 mmol/L Anion Gap 9.0 mmol/L Blood Urea Nitrogen 14 mg/dl Creatinine 0.84 mg/dl Est Creatinine Clear Calc Drug Dose 49.2 ml/min Estimated GFR () 72.4 Estimated GFR (Non- 62.5 BUN/Creatinine Ratio 16.8 Random Glucose 196 mg/dl Calcium Level 9.5 mg/dl (Patricia Gong, FRANCOIS) Assessment and Plan 88yo female with T2DM, HTN, and dementia presenting with an accidental fall leading to large forehead hematoma and laceration. Also with evidence of hypertensive emergency at presentation. S/p Fall with resulting head injury - No intracranial abnormality or hemorrhage per CT scan. - Ice to hematoma for today, then switch to heat. - Laceration care with removal of sutures 08/03 (7 days later) - PT/OT to evaluate if safe to return to [facility] assisted living - will await their assessment Hypertensive emergency - Pt had not received morning meds as event occurred at ~ 0730. BP improved in ED after presentation with IV labetalol and nicardipine drip - now off. - Resume home regimen of clonidine 0.1 mg BID and lisinopril 10 mg daily. - BPs are 140s/70s and are trending downward Abnormal EKG - the EKG findings likely from LVH and/or the HTN emergency. - Cardiac biomarkers x 3 sets all negative. - continue aspirin 81 mg daily DM II - hold metformin; ISS with accuchecks achs Dementia - anticipate she may have behavioral disturbance while here due to her being out of her typical environment. - continue namenda 10 mg BID Hyperlipidemia - cont pravastatin 10 mg daily Hypothyroidism - cont synthroid; most recent TSH was compensated. DVT ppx: hold chemical means due to large hematoma. SCDs CODE STATUS: DNR Disposition: From [facility] assisted living, PT/OT to eval, likely needs SNF placement (Patricia Gong, FRANCOIS) Reviewed: Pt Seen/Exam by Me (Mily Cristina MD) History Physician Medication Aid Supervision Note: I was present with DANIELLA Gong during the history and exam. I discussed the case with the PA and agree with the findings and plan as documented in the note. Any exceptions or clarifications are listed here: Pt denies any problems, seems to understand me and daughter at bedside reports pt can understand [place] well. Prior to development of her dementia, she was fluent in [place] as well as [place]. Pt speaks in jibberish which is her baseline, but is very pleasant, smiling, does not appear to be in discomfort. BPs have trended downward. Denies headache or CP Daughter concerned that pt not eating much since admission, but I reminded her she was having N/V from severely elevated BP yesterday and also with head trauma , could have nausea Daughter also concerned about weight loss progressive and intermittent periods of refusing to eat. Discussed natural progression of dementia Vitals reviewed NAD, thin, sitting up in bed Periorbital ecchymoses and edema OU with right forehead hematoma with small lac well approximated, no surrounding erythema or drainage RRR no mgr CTAB no wct Ext no edema 88 yo female with a h/o progressively worsening dementia, chronic debilitation and gait dysfunction, HTN, HL, hypothyroidism, h/o colon cancer s/p hemicolectomy, T2DM, here with mechanical fall resulting in head trauma and hypertensive urgency. Ruled out for ACS, no evidence of end organ damage from HTN urgency. -continue increased dose of lisinopril at 10mg -check PRP in AM to assess renal function since increased dose lisinopril -continue clonidine although this medication lends itself to significant rebound HTN in setting of a missed dose like what occurred for pt this admission --> would consider changing medications as outpt but unclear why she is not on a more "traditional" regimen to begin with--> will defer to PCP as BPs nicely controlled in hospital now -expect dc to SNF tomorrow if approved -remove sutures in 6 days -order Boost glucose control bid nad consult Dietary as per daughter's request Documented By: Mily Cristina (Mily Cristina MD)
[2017-07-28] MEDS: INSULIN ASPART 100 UNITS/ML 3 ML PEN SC SCH ×4 (08:37→20:44)
[2017-07-28] MEDS ORDERED: LISINOPRIL 5 MG TAB PO SCH (09:00)
[2017-07-29] VITALS (8 sets, daily range): BP systolic 115–168; BP diastolic 71–88; PULSE 68–95; TEMP 36.5–36.9; O2SAT 93–97
[2017-07-29] MEDS: LEVOTHYROXINE 50 MCG TAB PO SCH (06:23)
[2017-07-29] MEDS: INSULIN ASPART 100 UNITS/ML 3 ML PEN SC SCH ×5 (07:00→21:11)
[2017-07-29] MEDS: MULTIVITAMIN TAB PO SCH (07:55)
[2017-07-29] MEDS: CLONIDINE HCL 0.1 MG TAB PO SCH ×2 (07:55→21:13)
[2017-07-29] MEDS: CHOLECALCIFEROL 1000 INTER.UNIT TAB PO SCH (07:55)
[2017-07-29] MEDS: MEMANTINE 10 MG TAB PO SCH ×2 (07:55→21:13)
[2017-07-29] MEDS: PRAVASTATIN SOD 10 MG TAB PO SCH (07:55)
[2017-07-29] MEDS: ASPIRIN 81 MG ECTAB PO SCH (07:55)
[2017-07-29] MEDS: LISINOPRIL 10 MG TAB PO SCH (07:55)
[2017-07-29] MEDS: BOOST GLUCOSE CONTROL PO SCH ×3 (08:01→17:51)
[2017-07-29] MEDS ORDERED: BISACODYL 10 MG SUPP PR PRN (14:45)
--- NOTE | 2017-07-29 14:51 | Hospitalist Progress Note ---
Hospitalist Progress Note Date of Service Jul 29, 2017. (Patricia Gong PA-C) Subjective Pt evaluation today including: conversation w/ patient, physical exam, chart review, lab review, review of studies Pain: None PO Intake: Fair Voiding: no voiding problems The patient was seen and examined this morning. Pt continues to speak in broken algerian and mostly Moroccan. She is able to be reoriented if I repeatedly ask her to speak in Luxembourgish. She denies any acute pain, shortness of breath, fever , chills, or sweats. Her face is feeling better today, not as painful, and it appears the swelling is going down. Constitutional: + see HPI Eyes: No worsening of vision, No diplopia ENT: No trouble swallowing Respiratory: No shortness of breath Cardiovascular: No chest pain, No palpitations Abdomen: No pain, No nausea, No vomiting, No diarrhea Musculoskeletal: No joint pain, No swelling Neurologic: No weakness, No numbness/tingling Skin: No rash, No itch (Patricia Gong PA-C) Objective Vital Signs Date Time Temp Pulse Resp B/P (MAP) Pulse Ox O2 Delivery O2 Flow Rate FiO2 07/29/17 12:00 Room Air 07/29/17 10:53 36.5 90 18 115/71 (86) 97 Room Air 07/29/17 08:00 Room Air 07/29/17 07:38 36.9 71 18 168/85 (112) 93 Room Air 07/29/17 04:25 36.5 68 18 127/87 (100) 97 Room Air 07/29/17 04:00 Room Air 07/29/17 00:01 Room Air 07/28/17 23:37 36.7 74 18 146/75 (98) 96 Room Air 07/28/17 20:30 37.1 94 16 137/71 (93) 93 Room Air 07/28/17 20:00 Room Air 07/28/17 17:33 21 07/28/17 16:21 36.9 78 14 123/82 (96) 95 Room Air 07/28/17 16:00 Room Air (Patricia Gong PA-C) Physical Exam Notes: General Appearance: WD/WN, no apparent distress, + obese, + pertinent finding ( + right forehead laceration, +large hematoma is improving, +Ecchymosis surrounding R orbit and extending to the left orbit) Eyes: PERRL, EOMI ENT: hearing grossly normal, pharynx normal, + pertinent finding (MMM, + dried blood in bilateral nares ) Neck: supple, no JVD Respiratory/Chest: on room air, lungs clear, no respiratory distress, no accessory muscle use Cardiovascular: regular rate, rhythm, no murmur Abdomen: normal bowel sounds, non tender, soft Extremities: non-tender, no pedal edema, no calf tenderness Neurologic/Psychiatric: alert, + pertinent finding (Confused, answers do not make sense even when in algerian, follows commands for deep breaths.) (Patricia Gong, FRANCOIS) Laboratory Results Last 24 Hours Test 07/28/17 16:07 07/28/17 20:23 07/29/17 06:33 07/29/17 07:59 Bedside Glucose 193 mg/dl 153 mg/dl 145 mg/dl 212 mg/dl Test 07/29/17 11:02 Bedside Glucose 227 mg/dl (Patricia Gong, FRANCOIS) Assessment and Plan 88yo female with T2DM, HTN, and dementia presenting with an accidental fall leading to large forehead hematoma and laceration. Also with evidence of hypertensive emergency at presentation. S/p Fall with resulting head injury - No intracranial abnormality or hemorrhage per CT scan. - Use heat on hematoma now- appears much improved compared to yesterday. - Laceration care with removal of sutures on 08/03 (7 days later) - PT/OT recommending SNF, referral to [facility] accepted but family wants to think about discharge to this facility. [facility] does not accept her insurance, and [facility] does not have any beds available. Hypertensive emergency - RESOLVED - At time of presentation pt had not received morning meds as event occurred at ~ 0730. BP improved in ED after presentation with IV labetalol and nicardipine drip - now off. - Cont home regimen of clonidine 0.1 mg BID and lisinopril 10 mg daily. - BPs 120s/80s for the most part. Abnormal EKG - the EKG findings likely from LVH and/or the HTN emergency. - Cardiac biomarkers x 3 sets all negative. - continue aspirin 81 mg daily DM II - hold metformin; ISS with accuchecks achs Dementia - anticipate she may have behavioral disturbance while here due to her being out of her typical environment. - slightly aggitated but easily reoriented and calmed. - continue namenda 10 mg BID Hyperlipidemia - cont pravastatin 10 mg daily Hypothyroidism - cont synthroid; most recent TSH was compensated. DVT ppx: hold chemical means due to large hematoma. SCDs CODE STATUS: DNR Disposition: From [facility], Referrals for SNFs at [facility] pending, CM assisting with d/c planning. (Patricia Gong, FRANCOIS) Attending Attestation: Pt seen/examined, chart reviewed, care plan d/w DANIELLA Gong. I agree w/ the steele components of her documentation. No events per staff. Remains pleasantly confused. Eating ok. Tele with NSR or sinus tach. VSS no fever gen - nad mouth - MMM skin - hematoma, right forehead - improving; laceration right forehead - clean; ecchymoses over b/l eyes - worse over left eye but stable over right eye heart - RRR lungs - scant rales bases abd - soft, NT ext - no edema A/P: 1. recent hypertensive emergency - resolved. 2. HTN - controlled. 3. dementia - at baseline. 4. right forehead laceration - stable. 5. recent fall with right forehead hematoma - stable. dispo - SNF daughter updated by phone Deb ALEGRIA MD (Ayush Alegria MD)
[2017-07-29] MEDS: POLYETHYLENE (MIRALAX) 17 GM PACK PO SCH (16:03)
[2017-07-29] MEDS: BISACODYL 5 MG TABEC PO SCH (16:03)
[2017-07-30] MEDS: LEVOTHYROXINE 50 MCG TAB PO SCH (06:04)
[2017-07-30 07:51] LABS: HEMATOCRIT 38.2 % (37-47); MEAN CELL VOLUME 91.4 fL (80-100); MEAN CORPUSCULAR HEMOGLOBIN 31.3 pg (25-34); MEAN CORPUSCULAR HGB CONC 34.3 g/dl (32-36); MEAN PLATELET VOLUME 10.2 fL (7.4-10.4); PLATELET COUNT 253 K/uL (130-400); RED BLOOD COUNT 4.18 M/uL (4.2-5.4); WHITE BLOOD COUNT 5.96 K/uL (4.8-10.8)
[2017-07-30 08:10] VITALS: BP 179/98; TEMP 36.7; O2SAT 97
[2017-07-30 08:23] LABS: BUN/CREATININE RATIO 25.1 (10-20); CREATININE 0.74 mg/dl (0.60-1.20); MAGNESIUM 2.4 mg/dl (1.8-2.4); POTASSIUM 4.1 mmol/L (3.5-5.1)
[2017-07-30] MEDS: BISACODYL 5 MG TABEC PO SCH (09:17)
[2017-07-30] MEDS: BOOST GLUCOSE CONTROL PO SCH (09:17)
[2017-07-30] MEDS: CLONIDINE HCL 0.1 MG TAB PO SCH (09:17)
[2017-07-30] MEDS: MULTIVITAMIN TAB PO SCH (09:18)
[2017-07-30] MEDS: POLYETHYLENE (MIRALAX) 17 GM PACK PO SCH (09:18)
[2017-07-30] MEDS: PRAVASTATIN SOD 10 MG TAB PO SCH (09:18)
[2017-07-30] MEDS: CHOLECALCIFEROL 1000 INTER.UNIT TAB PO SCH (09:18)
[2017-07-30] MEDS: ASPIRIN 81 MG ECTAB PO SCH (09:18)
[2017-07-30] MEDS: MEMANTINE 10 MG TAB PO SCH (09:18)
[2017-07-30] MEDS: LISINOPRIL 10 MG TAB PO SCH (09:19)
[2017-07-30] MEDS ORDERED: NUTR-7 PO (09:21)
[2017-07-30] MEDS ORDERED: MRLP17 PO (09:21)
[2017-07-30] MEDS ORDERED: LISI-461 PO (09:21)
[2017-07-30] MEDS ORDERED: DLC5 PO (09:21)
[2017-07-30] MEDS ORDERED: DLCS PR (09:21)
[2017-07-30] MEDS: INSULIN ASPART 100 UNITS/ML 3 ML PEN SC SCH ×2 (09:22→12:46)
--- NOTE | 2017-07-30 09:31 | Discharge Instructions ---
Discharge Instructions Date of Service Jul 30, 2017. Admission Reason for Admission: Hypertensive Urgency Discharge Discharge Diagnosis / Problem: Hypertensive Urgency, s/p fall Discharge Goals Goal(s): Decrease discomfort, Improve function, Increase independence, Improve disease control Activity Recommendations Activity Level: Assistance Required Therapies: Physical Therapy, Occupational Therapy Lifting Limitations: no more than 10 pounds, gradually increase as tolerated Exercise/Sports Limitations: rest today, gradually increase as tolerated Shower/Bathe: no limitations (with assistance) . Additional Information Patient informed of condition: Yes Advance Directives: Yes DNR: Yes Level of Care: Skilled Communicable Disease: No Prognosis: Stable Daley Catheter: No Instructions / Follow-Up Instructions / Follow-Up You were admitted to [facility] with Hypertensive urgency and fall and diagnosed with the same. During your stay here you were treated with medications to control your blood pressure, intravenous fluids, and other supportive care Multiple imaging studies including a head CT, cervical spine CT, and pelvis xray were completed and did not show any acute fracture or acute findings. Sutures from head laceration will need to be removed on 08/03/17 ( this will be 1 week since initial placement) Use heat over forehead hematoma to help resolve. Medications: Lisinopril has been increased from 5 mg to 10 mg. Continue taking your medications as above. Appointments: Follow up with your Primary Care Provider at [facility] within 24-48 hours within arrival. Current Hospital Diet Patient's current hospital diet: Diabetes Type 2 Diet Discharge Diet Recommended Diet: Diabetes Type 2 Diet Pending Studies Studies pending at discharge: no Physician Orders On Transfer POLST Discussion: Not Applicable Laboratory Results Hemoglobin A1c Test 06/12/17 17:11 Range/Units Estimated Average Glucose 163 mg/dl Hemoglobin A1c 7.3 H 4.5-5.6 % Medical Emergencies . Who to Call and When: Medical Emergencies: If at any time you feel your situation is an emergency, please call 911 immediately. . Non-Emergent Contact Non-Emergency issues call your: Primary Care Provider Call Non-Emergent contact if: you have a fever, temperature is above 100.5, your pain is not controlled, your pain is worsening, you have any medication questions other concerns with your health. Call 911 or go directly to the Emergency Department if you experience any of the following: Chest pain, chest tightness, shortness of breath, abdominal pain , lightheadedness, dizziness, gastrointestinal bleeding, or have any other concerns regarding your health. Past History Medical & Surgical History: (1) Fall (2) Hypertensive urgency . "Provider Documentation" section prepared by Mary Gong. Attending Attestation: Pt seen/examined and discharge care plan d/w DANIELLA Gong. I agree w/ her discharge instructions as outlined. Ayush Mendoza MD . Core Measure Problem Core Measures: None
--- NOTE | 2017-07-30 09:41 | Discharge Summary ---
Discharge Summary Date of Service Jul 30, 2017. (Patricia Gong PA-C) Discharge Summary Admission Date: Jul 27, 2017 at 10:44 Discharge Date: Jul 30, 2017 Discharge Disposition: detention facility Principal Diagnosis: Hypertensive urgency, s/p fall Problems/Secondary Diagnoses: T2DM HTN dementia Hx of colon cancer s/p partial colectomy Immunizations: Have You Had Influenza Vaccine: Yes History of Tetanus Vaccine?: No History of Pneumococcal: Yes Pneumococcal Date: Jun 30, 2011 History of Hepatitis B Vaccine: No Procedures: HEAD WITHOUT CONTRAST (CT) CLINICAL HISTORY: 88 years-old Female with Pt AMS. Acute altered mental status with fall. Right frontal scalp laceration and hematoma. TECHNIQUE: Multiple axial CT images of the head were obtained without contrast. A dose lowering technique was utilized adhering to the principles of ALARA. CT DOSE: 1093.00 mGy.cm COMPARISON: CT head 02/06/2017. FINDINGS: No acute intracranial hemorrhage, midline shift, mass, large territorial ischemia or abnormal extra-axial collection. There is moderate cerebral and cerebellar atrophy with ex vacuo ventriculomegaly. Advanced chronic microvascular ischemic changes are present. The calvarium is intact. The paranasal sinuses, mastoid air cells, and middle ear cavities are clear. There is a large right frontal scalp hematoma, 5.3 x 1.6 cm with adjacent skin irregularity suggesting laceration. No opaque foreign body. IMPRESSION: 1. Large right frontal scalp hematoma measuring up to 5.3 cm and laceration without acute intracranial abnormality or calvarial fracture. No intracranial hemorrhage. 2. Stable age-related changes as above. The above report was generated using voice recognition software. It may contain grammatical, syntax or spelling errors. Electronically signed by: Juan Crowder M.D. 07/27/2017 8:45 AM Dictated Date/Time: 07/27/2017 8:41 AM The status of this report is Signed. CERVICAL SPINE W/O CLINICAL HISTORY: 88 years-old Female with Pt fall. Acute neck injury status post fall. COMPARISON: CT head of same day, CT cervical spine 05/17/2013. TECHNIQUE: Multiple axial CT images of the cervical spine were obtained without contrast. A dose lowering technique was utilized adhering to the principles of ALARA. FINDINGS: No acute cervical spine fracture or dislocation identified. There is unchanged 2 mm anterolisthesis of C4 on C5, likely secondary to severe facet arthropathy at this interspace. Multilevel facet arthropathy is noted which is moderate to severe throughout. Multilevel intervertebral disc space narrowing and endplate spurring is also noted. These changes result in moderate right-sided foraminal narrowing at C3-C4, moderate foraminal narrowing on the left at C4-C5 moderate left and severe right foraminal narrowing at C5-C6. Moderate bilateral C6-C7 foraminal stenosis. There is moderate intervertebral disc space narrowing at C3-C4 with mild/moderate intervertebral disc space narrowing seen at several levels. There is mild central canal narrowing at C5-C6. Lung apices are clear. There is atherosclerosis of the aorta and carotid bulbs. IMPRESSION: 1. No acute cervical spine fracture or subluxation. 2. Unchanged 2 mm anterolisthesis of C4 on C5, likely secondary to underlying severe facet arthropathy. 3. Multilevel advanced facet arthropathy and uncovertebral spurring is noted in addition to intervertebral disc space narrowing as above resulting in varying degrees of central canal and foraminal narrowing. No high-grade central canal stenosis identified. The above report was generated using voice recognition software. It may contain grammatical, syntax or spelling errors. Electronically signed by: Juan Crowder M.D. 07/27/2017 8:54 AM Dictated Date/Time: 07/27/2017 8:48 AM The status of this report is Signed. PELVIS 1 OR 2 VIEW ROUTINE HISTORY: 88 years-old Female Pt c/o AMS, fall acute altered mental status with recent fall. COMPARISON: Acute abdominal series radiographs 10/13/2012 TECHNIQUE: Single frontal view of the pelvis FINDINGS: Surgical coils from hernia repair project over the right lower quadrant. Vascular calcifications are noted. Moderate osteoarthritis of the bilateral hips. Advanced degenerative changes involve the lower lumbar spine, only partially imaged. There is no acute fracture or dislocation identified. IMPRESSION: 1. No acute fracture or dislocation. 2. Moderate osteoarthritis of the bilateral hips with partially imaged advanced degenerative changes of the lower lumbar spine. The above report was generated using voice recognition software. It may contain grammatical, syntax or spelling errors. Electronically signed by: Juan Crowder M.D. 07/27/2017 9:43 AM Dictated Date/Time: 07/27/2017 9:41 AM The status of this report is Signed. CHEST ONE VIEW PORTABLE HISTORY: 88 years-old Female Pt c/o AMS acute altered mental status with recent fall. COMPARISON: Chest radiograph 02/15/2013 TECHNIQUE: Portable upright AP view of the chest FINDINGS: Cardiac silhouette is again mildly enlarged. There is atherosclerosis and tortuosity of the aorta. There is no pneumothorax or large pleural effusion. Subsegmental linear left lung base opacity suggests atelectasis. There is sigmoidal scoliosis of the thoracolumbar spine. The bones appear grossly intact. IMPRESSION: Minimal left lung base subsegmental atelectasis/scarring without acute cardiopulmonary process. The above report was generated using voice recognition software. It may contain grammatical, syntax or spelling errors. Electronically signed by: Juan Crowder M.D. 07/27/2017 9:41 AM Dictated Date/Time: 07/27/2017 9:39 AM The status of this report is Signed. Consultations: none (Patricia Gong PA-C) Problems/Secondary Diagnoses: cervical spine DJD hyperlipidemia hypothyroidism hip DJD ambulatory dysfunction forehead laceration 2nd to fall forehead hematoma 2nd to fall (Ayush Mendoza MD) Medication Reconciliation New Medications: Bisacodyl (Bisacodyl EC) 5 Mg Tabec 5 MG PO DAILY for 30 Days, #30 TAB Bisacodyl (Bisac-Evac) 10 Mg Supp 10 MG AL DAILY PRN for Constipation for 30 Days, #30 SUPP Nutritional Supplements (Boost) 1 Liq Liq 1 CAN PO BIDM for 30 Days, #60 DOSE Polyethylene (Miralax) 17 Gm Pow 17 GM PO DAILY for 30 Days, #30 DOSE Changed Medications: Lisinopril (Lisinopril) 10 Mg Tab 10 MG PO DAILY for 30 Days, #30 TAB (Changed from: Lisinopril 5 Mg Tab 5 Mg PO DAILY) Continued Medications: Alprazolam (Alprazolam) 0.25 Mg Tab 0.125 MG PO BID PRN for Anxiety Aspirin (Aspirin Ec) 81 Mg Tab 81 MG PO DAILY Cholecalciferol (Vitamin D3) 1,000 Unit Tab 1000 INTER.UNIT PO DAILY, TAB 3 Refills Clonidine Hcl (Catapres) 0.1 Mg Tab 0.1 MG PO BID, TAB 3 Refills Cyanocobalamin (Vitamin B12) 1,000 Mcg Tab 1000 MCG PO DAILY Levothyroxine Sodium (Levothyroxine Sodium) 50 Mcg Tab 50 MCG PO DAILY, TAB 3 Refills Meclizine HCl (Meclizine HCl) 12.5 Mg Tab 25 MG PO TID PRN for Dizziness or Vertigo, TAB Memantine (Namenda) 10 Mg Tab 10 MG PO BID, TAB Metformin Hcl Er (Glucophage Er) 500 Mg Tab 500 MG PO DAILY, TAB Multivitamins (Daily Saroj) 1 Tab Tab 1 TAB PO DAILY Omeprazole (Prilosec) 20 Mg Capcr 20 MG PO DAILY PRN for PRN, CAP Pravastatin Sodium (Pravastatin Sodium) 10 Mg Tab 10 MG PO DAILY Rivastigmine Tartrate (Rivastigmine Tartrate) 1.5 Mg Cap 3 MG PO BID Discharge Exam The patient was seen and examined this morning. Pt is speaking in mostly Macedonian but is able to answer yes and no to my ROS. She denies any pain, ate breakfast, no abdominal pain. Daughter will be here later this morning and planning to transport the pt to [facility]. PE: General Appearance: WD/WN, no apparent distress, + obese, + pertinent finding ( + right forehead laceration, +large hematoma is improving, +Ecchymosis surrounding R orbit and extending to the left orbit also improving) Eyes: PERRL, EOMI ENT: hearing grossly normal, pharynx normal, + pertinent finding (MMM) Neck: supple, no JVD Respiratory/Chest: on room air, lungs clear, no respiratory distress, no accessory muscle use Cardiovascular: regular rate, rhythm, no murmur Abdomen: normal bowel sounds, non tender, soft Extremities: non-tender, no pedal edema, no calf tenderness Neurologic/Psychiatric: alert, + pertinent finding (Confused, answers do not make sense even when in northern irish, follows commands for deep breaths.) Review of Systems: Constitutional: No fever, No chills, No sweats Eyes: No diplopia Respiratory: No cough, No shortness of breath Cardiovascular: No chest pain, No palpitations Abdomen: No pain, No nausea, No vomiting Musculoskeletal: No joint pain, No swelling, No calf pain Neurologic: No weakness, No numbness/tingling Endocrine: No fatigue Integumentary: No rash, No itch (Patricia Gong, FLORIDALMAC) Hospital Course History of Present Illness 88yo female, resident of [facility], with h/o dementia, T2DM , and HTN - who presented after a fall this am about 0730. Was standing in her room at [facility] while staff were getting her ready for the day when she simply fell and hit her head. There was no loss of consciousness. She struck the front portion of her forehead. The patient denied any dizziness , chest pain, or dyspnea prior to the event. She had several falls a few months ago but none since. She does very little walking, if any, and is essentially wheelchair dependent. Prior to ER arrival she had emesis. Then had emesis again in the ER. SBP upon arrival was >200. Received IV labetalol followed by nicardipine drip. By the time of my assessment her SBP was in the 150s. She had a small head laceration on the right forehead sewn prior to my arrival. Of note - patient did NOT receive her BP meds this AM. Physical Exam Vital Signs Date Time Temp Pulse Resp B/P (MAP) Pulse Ox O2 Delivery O2 Flow Rate FiO2 07/27/17 10:30 85 20 135/81 95 Room Air 07/27/17 10:20 83 18 157/76 95 Room Air 07/27/17 10:10 82 20 159/78 94 Room Air 07/27/17 10:00 81 18 146/79 95 Room Air 07/27/17 09:50 84 18 151/75 95 Room Air 07/27/17 09:40 79 18 155/73 96 Room Air 07/27/17 09:30 80 18 176/91 96 Room Air 07/27/17 09:25 82 18 169/93 97 Room Air 07/27/17 09:17 75 20 192/92 95 Room Air 07/27/17 09:10 75 20 200/95 96 Room Air 07/27/17 09:00 195/128 07/27/17 08:50 202/101 07/27/17 08:45 74 18 202/92 94 Room Air 07/27/17 08:43 81 18 180/103 94 Room Air 07/27/17 08:35 95 Room Air 07/27/17 08:25 37.0 77 18 241/115 96 Room Air 07/27/17 08:25 76 General Appearance: WD/WN, no apparent distress, + pertinent finding (somewhat restless, stating she wanted to go home) Head: normocephalic, + evidence of trama (large hematoma over right forehead with ecchymoses extending to the right orbit; there is a small laceration over the right forehead, about 2cm in size, with sutures in place) Eyes: PERRL, sclerae normal, + pertinent finding (lens implant left eye) ENT: pharynx normal, + pertinent finding (cerumen impaction b/l; nose with minor irritation from her fall; no obvious septal hematoma seen) Neck: supple, no adenopathy, thyroid normal, no JVD, no carotid bruits, trachea midline Respiratory/Chest: lungs clear, no respiratory distress, no accessory muscle use Cardiovascular: regular rate, rhythm, no gallop, no murmur, normal peripheral pulses Abdomen/GI: normal bowel sounds, non tender, soft, no organomegaly Back: normal inspection, no CVA tenderness, no muscle spasm, + pertinent finding (no tenderness to palpation over the t-spine or l-spine) Extremities/Musculoskelatal: no pedal edema Neurologic/Psych: alert, + disoriented, + pertinent finding (strength 5/5 x 4 extremities; no facial droop; DTRs 2+ b/l upper & lower extremities; gait not tested) Skin: + pertinent finding (both knees with minor abrasions; large hematoma over right forehead extending onto the right eye periorbitally) Lymphatic: no adenopathy (cervical ) musculo - no pain with palpation of either knee or the pelvis Hospital Course: 88yo female with T2DM, HTN, dementia and hx of colon carcinoma s/p partial resection presenting with an accidental fall leading to large forehead hematoma and laceration. Also with evidence of hypertensive emergency at presentation. S/p Fall with resulting head injury - No intracranial abnormality or hemorrhage per CT scan. - Use heat on hematoma now- appears much improved compared to yesterday. - Laceration care with removal of sutures on 08/03 (7 days later) - PT/OT recommending SNF, referral [facility] accepted but family wants to think about discharge to this facility. [facility] does not accept her insurance, and [facility] does not have any beds available. Hypertensive emergency - RESOLVED - At time of presentation pt had not received morning meds as event occurred at ~ 0730. BP improved in ED after presentation with IV labetalol and nicardipine drip - now off. - Cont home regimen of clonidine 0.1 mg BID and lisinopril increased to 10 mg daily. Continue at time of dc. - BPs 120s/80s for the most part. Abnormal EKG - the EKG findings likely from LVH and/or the HTN emergency. - Cardiac biomarkers x 3 sets all negative. - continue aspirin 81 mg daily DM II - Resume metformin at time of discharge; while admitted metformin was held, ISS with accuchecks achs Dementia - anticipate she may have behavioral disturbance while here due to her being out of her typical environment. - when slightly aggitated she is easily reoriented and calmed. - continue namenda 10 mg BID Hyperlipidemia - cont pravastatin 10 mg daily Hypothyroidism - cont synthroid; most recent TSH was compensated. DVT ppx: hold chemical means due to large hematoma. SCDs CODE STATUS: DNR Disposition: Referrals for SNFs at [facility] accepted, dc today. Total Time Spent: Greater than 30 minutes This includes examination of the patient, discharge planning, medication reconciliation, and communication with other providers. (Patricia Gong PA-C) Attending Discharge Note & Attestation: Pt seen/examined, chart reviewed, care plan d/w DANIELLA Gong. I agree w/ the steele components of her discharge summary. 88yo female with h/o fairly advanced dementia who suffered a fall leading to a forehead laceration requiring repair as well as a hematoma. At time of ER presentation she had marked elevation of her BP with Systolic BP nearly 240. This was associated with nausea and emesis. She briefly required a calcium channel jamel IV drip for control of her BP and hypertensive emergency. With restarting of her home medications and improved pain control from the head injury her BPs normalized. The patient was quite weak & deconditioned during her stay. PT/OT both recommended 24/7 supervision & care; thus, she will transfer to [facility] SNF for ongoing care. Discharge exam - gen - NAD, pleasantly confused head - resolving hematoma, right forehead; well-approximated laceration, right forehead, with sutures intact skin - ecchymoses over right forehead and both orbits; "rainbow" of colors in these locations heart - RRR lungs - CTA b/l abd - soft, NT ext - no edema neuro - strength 5/5 x 4 exts psych - a/o x 1 Ayush Mendoza MD (Ayush Mendoza MD) Discharge Instructions Please refer to the electronic Patient Visit Report (Discharge Instructions) for additional information. (Patricia Gong PA-C) Follow-Up Follow up with your Primary Care Provider at [facility] within 24-48s of arrival. (Patricia Gong, FRANCOIS) Additional Copies To Dimitry Sandhu M.D.; [facility]; [facility]; [facility]; [facility]
[2017-07-30 09:56] VITALS: BP 179/98; PULSE 84; TEMP 36.7; O2SAT 97
[2017-07-30 15:08] VITALS: BP 128/77; PULSE 105; TEMP 36.7; O2SAT 95
== END 2017-07-30 16:28 | DRG 605 ==
LOC: EDBD 08:17 → C.EDA 08:18 → C.2T 10:44 → CANRESERV 10:59 → ENRESERV 10:59 → CANBEDREQ 11:25 → ENRESERV 12:31 → C.MS2W 07-29 16:55
PROVIDERS: ADMIT Internal Medicine; ATTEND Internal Medicine
PROC: 0HQ1XZZ Repair Face Skin, External Approach (ICD-10-PCS; principal; 2017-07-27)
DX: S00.83XA Contusion of other part of head, initial encounter (principal); I16.1 Hypertensive emergency; S01.81XA Laceration without foreign body of other part of head, initial encounter; W19.XXXA Unspecified fall, initial encounter; F03.90 Unspecified dementia, unspecified severity, without behavioral disturbance, psychotic disturbance, mood disturbance, and anxiety; E11.9 Type 2 diabetes mellitus without complications; I10 Essential (primary) hypertension; E78.5 Hyperlipidemia, unspecified; E03.9 Hypothyroidism, unspecified; R26.9 Unspecified abnormalities of gait and mobility; Z85.038 Personal history of other malignant neoplasm of large intestine; Z90.49 Acquired absence of other specified parts of digestive tract; Z82.49 Family history of ischemic heart disease and other diseases of the circulatory system; Z79.82 Long term (current) use of aspirin

== ENCOUNTER → 2017-08-14 | Outpatient (CLI) | payer BC ==
[~2017-08-14] MED LIST changes: +ASPI81TA28 PO; +CHOL1000 PO; +CLON0.1T12 PO; +CYAN100020 PO; +DLC5 PO; +DLCS PR; +EXL15 PO; +LEVO50TA6 PO; +LISI-461 PO; +MECL1TAB40 PO; -MELO7.5T5 PO; +METF500T5 PO; +MRLP17 PO; -MULT-506 PO; +MULT-589 PO; -NAPR1TAB9 PO; +NMN10 PO; +NUTR-7 PO; +PRLSR20 PO; +XNX25 PO
[2017-08-14 08:50] LABS: BLOOD UREA NITROGEN 20 mg/dl (7-18); BUN/CREATININE RATIO 26.2 (10-20); CALCIUM 8.9 mg/dl (8.5-10.1); CARBON DIOXIDE 33 mmol/L (21-32); CHLORIDE 99 mmol/L (98-107); CREATININE 0.76 mg/dl (0.60-1.20); GLUCOSE 154 mg/dl (70-99); POTASSIUM 4.5 mmol/L (3.5-5.1); SODIUM 136 mmol/L (136-145)
== END ==
LOC: C.LABUPNIT 08:27
PROVIDERS: ATTEND Nurse Practitioner Family
DX: I16.9 Hypertensive crisis, unspecified (principal)

== ENCOUNTER → 2017-11-13 | Outpatient (CLI) | payer BC | END | disposition home or self-care (01) | LOC: C.LABSPEC 16:18 | PROVIDERS: ATTEND Internal Medicine | DX: R39.9 Unspecified symptoms and signs involving the genitourinary system (principal) ==

== ENCOUNTER → 2017-12-02 | Outpatient (CLI) | payer BC | END | disposition home or self-care (01) | LOC: C.LABSPEC 16:06 | PROVIDERS: ATTEND Internal Medicine | DX: R39.9 Unspecified symptoms and signs involving the genitourinary system (principal) ==

== ENCOUNTER → 2018-01-05 | Outpatient (CLI) | payer BC ==
--- NOTE | 2018-01-05 09:27 | DIAGNOSTIC IMAGING REPORT ---
RIGHT LOWER QUADRANT ABDOMINAL ULTRASOUND HISTORY: Abdominal pain. COMPARISON: Abdominal ultrasound June 30, [address] of the abdomen and pelvis April 21, 2008. FINDINGS: Sonography of the right lower quadrant at site of palpable abnormality demonstrates a probable nonreducible bowel and fat-containing hernia. No fluid collection was identified. IMPRESSION: Probable nonreducible bowel and fat-containing right lower quadrant abdominal wall hernia which represents the palpable abnormality. Electronically signed by: Serge Huertas M.D. 01/05/2018 9:26 AM Dictated Date/Time: 01/05/2018 9:16 AM
== END | disposition home or self-care (01) ==
LOC: C.ULTRBC 08:23
PROVIDERS: ATTEND Internal Medicine
DX: R10.9 Unspecified abdominal pain (principal)

== ENCOUNTER 2018-05-25 21:11 | Emergency (ER) | payer BC ==
[~2018-05-25 21:11] MED LIST changes: +ALPR0.254 PO; -XNX25 PO
[2018-05-25 21:21] VITALS: TEMP 36.8; Ht 147.3 cm
--- NOTE | 2018-05-25 22:10 | EMERGENCY ROOM VISIT NOTE ---
History Report prepared by Sebastien: Dakota Tariq Under the Supervision of: Dr. Tiffany Garcia M.D. First contact with patient: 21:54 Chief Complaint: LEG PAIN,LEG INJURY Stated Complaint: BIG BUMP ON LEG History of Present Illness The patient is a 89 year old female who presents to the Emergency Room with complaints of constant right lower extremity pain that began this evening. She rates her pain as a 9/10 in severity. The patient is accompanied by her daughter who states that patient started screaming and was reaching for her right leg at the halfway. She reports the nurse removed the patient's sock and noticed an ecchymotic bump on her right ribeiro. Her daughter states that the patient was given Tylenol and ice packs for the pain and swelling. She states the patient does currently take Plavix and Aspirin. Source of History: family Onset: this evening Position: leg (right) Symptom Intensity: 9/10 Timing: constant Note: Associated symptoms: right ribeiro bruise, right ribeiro swelling Review of Systems See HPI for pertinent positives & negatives. A total of 10 systems reviewed and were otherwise negative. Past Medical & Surgical Medical Problems: (1) Carcinoma of colon (2) Partial colectomy Family History Patient reports no known family medical history. Social History Smoking Status: Never Smoker Alcohol Use: none Drug Use: none Marital Status: Housing Status: halfway Occupation Status: retired Current/Historical Medications Scheduled Aspirin (Aspirin Ec), 81 MG PO DAILY Bisacodyl (Bisacodyl EC), 5 MG PO DAILY Cholecalciferol (Vitamin D3), 1,000 INTER.UNIT PO DAILY Clonidine Hcl (Catapres), 0.1 MG PO BID Cyanocobalamin (Vitamin B12), 1,000 MCG PO DAILY Levothyroxine Sodium (Levothyroxine Sodium), 50 MCG PO DAILY Lisinopril (Lisinopril), 10 MG PO DAILY Memantine (Namenda), 10 MG PO BID Metformin Hcl Er (Glucophage Er), 500 MG PO DAILY Multivitamins (Daily Saroj), 1 TAB PO DAILY Nutritional Supplements (Boost), 1 CAN PO BIDM Polyethylene (Miralax), 17 GM PO DAILY Pravastatin Sodium (Pravastatin Sodium), 10 MG PO DAILY Rivastigmine Tartrate (Rivastigmine Tartrate), 3 MG PO BID Scheduled PRN Alprazolam (Alprazolam), 0.125 MG PO BID PRN for Anxiety Bisacodyl (Bisac-Evac), 10 MG AL DAILY PRN for Constipation Meclizine HCl (Meclizine HCl), 25 MG PO TID PRN for Dizziness or Vertigo Omeprazole (Prilosec), 20 MG PO DAILY PRN for PRN Allergies Coded Allergies: Penicillins (Verified Allergy, Intermediate, RASH, 02/15/13) Donepezil (Unverified Allergy, Unknown, UNKNOWN, 07/27/17) Sulfa Antibiotics (Unverified Allergy, Unknown, UNKNOWN, 07/27/17) Physical Exam Vital Signs Date Time Temp Pulse Resp B/P (MAP) Pulse Ox O2 Delivery O2 Flow Rate FiO2 05/25/18 23:19 70 18 145/78 95 05/25/18 22:00 63 18 132/67 95 Room Air 05/25/18 21:21 36.8 72 18 152/75 92 Room Air Physical Exam Vital signs reviewed. General: Well-appearing 89 year old female, in no significant distress. HEENT: No scleral icterus, PERRLA, neck supple. Atraumatic. Cardiovascular: Regular rate and rhythm, no extra sounds. Pulmonary: Clear to auscultation bilaterally, normal work of breathing. Abdomen: Soft, nontender, nondistended, positive bowel sounds. Musculoskeletal: Atraumatic, no peripheral edema. Hematoma as described below. Neurologic: Patient awake alert and pleasantly confused, at neurologic baseline. Skin: Warm, dry, no rash. 3 cm hematoma to the right distal ribeiro. No bleeding. No erythema. Medical Decision & Procedures ED Course 220: Past medical records reviewed. The patient was evaluated in room B07. A complete history and physical examination was performed. 2211: I discussed findings with patient's family. They verbalized agreement of the treatment plan. The patient was discharged home. Medical Decision Differential diagnosis includes fracture, hematoma, neurovascular compromise, compartment syndrome, soft tissue injury, as well as others were entertained. This patient was evaluated and appeared to be in no significant distress. Physical examination reveals a hematoma to the right lower extremity. Patient is in a halfway and does not ambulate. She likely has sustained a small ribeiro contusion over a delicate vein that has bled. Patient is on aspirin and Plavix. Patient's family was reassured. A supportive dressing was applied with an Gulshan wrap and a Alvin stocking. Instructions were given to elevate the leg as much as possible. They will follow-up with the primary care physician and return to the ED for worsening of symptoms or any medical concerns. Medication Reconcilliation Current Medication List: was personally reviewed by me Blood Pressure Screening Patient's blood pressure: Elevated blood pressure Blood pressure disposition: Elevated BP felt to be situational Impression Primary Impression: Traumatic hematoma of right lower leg Scribe Attestation The scribe's documentation has been prepared under my direction and personally reviewed by me in its entirety. I confirm that the note above accurately reflects all work, treatment, procedures, and medical decision making performed by me. Departure Information Dispostion Home / Self-Care Referrals Dimitry Sandhu M.D. (PCP) Forms HOME CARE DOCUMENTATION FORM, IMPORTANT VISIT INFORMATION Patient Instructions My [facility] Additional Instructions Diagnosis: Right lower extremity hematoma Wear the supportive dressing and stocking when on your feet or when they are dangling in the chair. You may remove the dressings at night. Follow-up with your physician for reevaluation in 2 weeks time. Return to the ED for worsening of symptoms or any medical concerns.
[2018-05-25 23:19] VITALS: BP 145/78; PULSE 70; O2SAT 95
== END 2018-05-25 23:15 | disposition home or self-care (01) ==
LOC: C.EDB 21:15
DX: S80.11XA Contusion of right lower leg, initial encounter (principal); X58.XXXA Exposure to other specified factors, initial encounter; Y92.199 Unspecified place in other specified residential institution as the place of occurrence of the external cause; Z79.01 Long term (current) use of anticoagulants; Z79.82 Long term (current) use of aspirin; Z90.49 Acquired absence of other specified parts of digestive tract; Z85.038 Personal history of other malignant neoplasm of large intestine; Z79.84 Long term (current) use of oral hypoglycemic drugs; Z79.899 Other long term (current) drug therapy; Z88.0 Allergy status to penicillin; Z88.2 Allergy status to sulfonamides; Z88.8 Allergy status to other drugs, medicaments and biological substances